=== PATIENT | female | born 1950 | race Caucasian/White ===

== ENCOUNTER 2019-01-13 22:58 | Inpatient (IN) | payer OTHER ==
[~2019-01-13] VITALS: Ht 152.4 cm; Wt 73.7 kg
[~2019-01-13 22:58] MED LIST: ACAR50TA PO; ASPI-831 PO; ATOR-2 PO; GABA100C14 PO; GLIP10TA14 PO; ISOS30TA67 PO; LANT3I SC; LISI-313 PO; METO-448 PO; MTF1000T PO; TOLT2CAP15 PO
[2019-01-13 23:06] VITALS: Ht 152.4 cm; Wt 73.7 kg
[2019-01-14] MEDS ORDERED: NITROGLYCERIN (SL) 0.4 MG TAB SL ONE
[2019-01-14] MEDS ORDERED: ASPIRIN 81 MG TAB PO ONE (01:00)
[2019-01-14] MEDS ORDERED: ACETAMINOPHEN 325 MG TAB PO PRN ×2 (02:30→06:00)
[2019-01-14] MEDS ORDERED: ONDANSETRON 4 MG INJ IV PRN ×2 (02:30→06:00)
[2019-01-14] MEDS ORDERED: NITROGLYCERIN (SL) 0.4 MG TAB SL PRN (06:00)
[2019-01-14] MEDS ORDERED: NACL 0.9% 3 ML SYG IV SCH (06:00)
[2019-01-14] MEDS ORDERED: ALBUTEROL/IPRATROPIUM (NEB) 3 ML AMP HHN PRN (06:00)
[2019-01-14] MEDS ORDERED: INSULIN GLARGINE [LANTus] (100 UNITS/ML) SYG SC SCH (08:00)
[2019-01-14] MEDS: INSULIN ASPART [NOVOLOG] 3 ML PEN SC SCH ×4 (08:28→20:53)
[2019-01-14] MEDS: INSULIN GLARGINE [LANTus] (100 UNITS/ML) SYG SC SCH (08:28)
[2019-01-14] MEDS: ASPIRIN 81 MG TAB PO SCH (08:29)
[2019-01-14] MEDS: ENOXAPARIN 40 MG/0.4 ML SYG SC SCH (08:29)
[2019-01-14 16:34] VITALS: BP 144/67; PULSE 58
[2019-01-14 20:37] VITALS: BP 121/56; PULSE 54; RESP 18
[2019-01-14] MEDS ORDERED: INSULIN ASPART [NOVOLOG] 3 ML PEN SC ONE (21:00)
[2019-01-14] MEDS ORDERED: ATORVASTATIN 40 MG TAB PO SCH (21:00)
[2019-01-15 00:22] VITALS: BP 122/58; PULSE 55; RESP 16
[2019-01-15] MEDS ORDERED: ACCU-CHEK XX SCH (02:00)
[2019-01-15 04:00] VITALS: BP 120/52; PULSE 53; RESP 18
[2019-01-15] MEDS: INSULIN ASPART [NOVOLOG] 3 ML PEN SC SCH ×2 (07:37→12:00)
[2019-01-15] MEDS ORDERED: SOD CHLORIDE 0.9% 100 ML ONE (07:48)
[2019-01-15] MEDS ORDERED: IOHEXOL 100 ML ONE (07:48)
[2019-01-15] MEDS ORDERED: NITROGLYCERIN AEROSOL (4.9 GM) ONE (08:28)
[2019-01-15] MEDS: ASPIRIN 81 MG TAB PO SCH (09:00)
[2019-01-15] MEDS: INSULIN GLARGINE [LANTus] (100 UNITS/ML) SYG SC SCH (09:04)
[2019-01-15] MEDS: ENOXAPARIN 40 MG/0.4 ML SYG SC SCH (09:04)
[2019-01-15 11:51] VITALS: BP 135/60; PULSE 6; RESP 17
[2019-01-15] MEDS ORDERED: DEXTROSE 50% 50 ML SYRINGE IV PRN ×2 (16:30)
[2019-01-15] MEDS ORDERED: GLUCOSE GEL 15 GRAM TUBE PO PRN ×2 (16:30)
[2019-01-15] MEDS ORDERED: GLUCOSE GEL 15 GRAM TUBE BUCCAL PRN (16:30)
[2019-01-15] MEDS ORDERED: GLUCAGON 1 MG INJ IM PRN (16:30)
== END 2019-01-15 16:46 | disposition home or self-care (01) | DRG 313 ==
LOC: E/R 22:58 → 6WM 01-14 02:29
PROVIDERS: ADMIT Internal Medicine; ATTEND Internal Medicine
DX: R07.89 Other chest pain (principal); E11.9 Type 2 diabetes mellitus without complications; R00.1 Bradycardia, unspecified; I10 Essential (primary) hypertension; E78.5 Hyperlipidemia, unspecified; Z79.4 Long term (current) use of insulin; Z79.82 Long term (current) use of aspirin; Z95.2 Presence of prosthetic heart valve; Z90.49 Acquired absence of other specified parts of digestive tract
CPT/HCPCS: 36415; 71045; 75574; 80048; 80053; 80061; 82550; 82553; 82962; 83036; 83735; 84100; 84443; 84484; 85025; 93005; 93306; J1650; J1815; Q9967